=== PATIENT | female | born 1955 | race Caucasian/White ===

== ENCOUNTER 2024-02-12 10:44 | Emergency (ER) | payer MEDICARE, OTHER ==
[2024-02-12 11:39] LABS: BASOPHILS % (AUTO) 0.7 %; EOSINOPHILS # (AUTO) 0.2 10^3/uL (0.0-0.7); EOSINOPHILS % (AUTO) 3.4 %; HCT - HEMATOCRIT 45.3 % (37.0-47.0); HGB - HEMOGLOBIN 14.7 g/dL (12.0-16.0); LYMPHOCYTES # (AUTO) 1.6 10^3/uL (1.5-3.5); LYMPHOCYTES % (AUTO) 27.7 %; MEAN CORPUSCULAR HEMOGLOBIN 30.5 pg (27.0-31.0); MEAN CORPUSCULAR HGB CONC 32.5 g/dL (32.0-36.0); MEAN PLATELET VOLUME 9.3 fL (7.9-10.8); MONOCYTES # (AUTO) 0.5 10^3/uL (0.0-1.0); MONOCYTES % (AUTO) 9.2 %; NEUTROPHILS # (AUTO) 3.3 10^3/uL (1.5-6.6); NEUTROPHILS % (AUTO) 58.6 %; PLT - PLATELET COUNT 301 10^3/uL (130-450); RED BLOOD COUNT 4.82 10^6/uL (4.20-5.40); RED CELL DISTRIBUTION WIDTH 12.3 % (12.0-15.0); WHITE BLOOD COUNT 5.6 x10^3/uL (4.8-10.8)
--- NOTE | 2024-02-12 11:55 | ED Physician Documentation ---
History of Present Illness - Stated complaint Stated Complaint: DIZZINESS,BLURRED VISION - Chief complaint Chief Complaint: Neuro - History obtained from History obtained from: Patient, Family () - History of Present Illness Timing: Today - Additonal information Additional information: 68-year-old Pascale Horton is visiting [place] from [place]. She usually stays here 10 days out of the year. She is drinking more alcohol than normal. This morning she got into the shower and while she was showering she developed acute significant dizziness and lightheadedness she developed some double vision as well. She has had a second episode while she was making the bed this morning. She had a third episode while she was walking. She has had a prior episode of dehydration causing syncope. She does not take a diuretic she is not a diabetic she has not had vomiting or diarrhea. She is uncertain how much fluid she is consumed in the past 2 days. She does have a history of consumption of supplements including berberine which has known diuretic properties. Review of Systems Constitutional: denies: Fever Eyes: denies: Decreased vision Ears: denies: Ear pain Nose: denies: Rhinorrhea / runny nose, Congestion Throat: denies: Sore throat Cardiac: denies: Chest pain / pressure, Palpitations Respiratory: denies: Dyspnea, Cough GI: denies: Abdominal Pain, Nausea, Vomiting, Constipation, Diarrhea : denies: Dysuria, Frequency Skin: denies: Rash Musculoskeletal: denies: Neck pain, Back pain, Extremity pain Neurologic: denies: Generalized weakness, Focal weakness, Numbness PD PAST MEDICAL HISTORY - Past Medical History Past Medical History: Yes Cardiovascular: None Respiratory: None Neuro: Migraines Endocrine/Autoimmune: None GI: GERD 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 : None HEENT: None Psych: Anxiety, Claustrophobia Musculoskeletal: Osteoarthritis, Chronic back pain Derm: None - Past Surgical History Past Surgical History: Yes /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: Hysterectomy - Present Medications Home Medications: Ambulatory Orders Medication Instructions Recorded Confirmed Diclofenac Sodium 75 mg PO DAILY 02/12/24 02/12/24 Pantoprazole [Protonix] 40 mg PO DAILY 02/12/24 02/12/24 - Allergies Allergies/Adverse Reactions: Allergies Allergy/AdvReac Type Severity Reaction Status Date / Time Sulfa (Sulfonamide Allergy Unknown Verified 02/12/24 10:49 Antibiotics) - Social History Does the pt smoke?: No Smoking Status: Never smoker Does the pt drink ETOH?: Yes ETOH Use: Wine Does the pt have substance abuse?: No - Immunizations Immunizations are current?: Yes - POLST Patient has POLST: No PD ED PE NORMAL - Vitals Vital signs reviewed: Yes (Hypertensive) - General General: Alert and oriented X 3, No acute distress, Well developed/nourished - HEENT HEENT: Atraumatic, PERRL, EOMI - Neck Neck: Supple, no meningeal sign, No bony TTP - Cardiac Cardiac: RRR, No murmur - Respiratory Respiratory: No respiratory distress, Clear bilaterally - Abdomen Abdomen: Soft, Non tender - Back Back: No CVA TTP, No spinal TTP - Derm Derm: Normal color, Warm and dry, No rash - Extremities Extremities: No deformity, No edema - Neuro Neuro: Alert and oriented X 3, inspector timers 2-12 intact, No motor deficit, No sensory deficit, Normal speech Eye Opening: Spontaneous Motor: Obeys Commands Verbal: Oriented GCS Score: 15 - Psych Psych: Normal mood, Normal affect Results - Vitals Vitals: Vital Signs - 24 hr 02/12/24 02/12/24 02/12/24 10:50 13:03 13:33 Temperature 36.3 C L Heart Rate 73 60 64 Respiratory 16 14 18 Rate Blood Pressure 179/81 H 163/74 H 163/74 H O2 Saturation 99 100 99 Oxygen O2 Source Room air - EKG (time done) 1121 EKG releavant findings:: EKG personally interpreted by author of this note. Relevant findings are: Rate: Rate (enter#) (61) Rhythm: LAE QRS: LVH Compare to prior EKG: Old EKG unavailable Computer interpretation: Agree with computer - Labs Labs: Laboratory Tests 02/12/24 02/12/24 02/12/24 11:02 11:30 11:30 WBC 5.6 RBC 4.82 Hgb 14.7 Hct 45.3 MCV 94.0 MCH 30.5 MCHC 32.5 RDW 12.3 Plt Count 301 MPV 9.3 Neut # (Auto) 3.3 Lymph # (Auto) 1.6 [place] # (Auto) 0.5 Eos # (Auto) 0.2 Baso # (Auto) 0.0 Absolute Nucleated RBC 0.00 Nucleated RBC % 0.0 Sodium 141 Potassium 3.6 Chloride 106 Carbon Dioxide 29 Anion Gap 6.0 BUN 13 Creatinine 0.6 Estimated GFR (MDRD) 99 Glucose 73 L POC Whole Bld Glucose 106 H Calcium 9.4 Total Bilirubin 0.8 AST 19 ALT 15 Alkaline Phosphatase 92 Troponin I High Sens 2.4 Total Protein 7.3 Albumin 4.4 Globulin 2.9 Albumin/Globulin Ratio 1.5 Lipase 28 Procedures - IVC sono (time) 1150 Bedside IVC sono: IVC measures (cm) (0.6), IVC collapsed c insp (cm) (complete), Profound dehydration (est 3+ liter deficit) PD Medical Decision Making - ED course Complexity details: reviewed results, re-evaluated patient, considered differential, d/w patient, d/w family Reviewed Lab Results: We reviewed complete blood count showing a normal white blood cell count normal hemoglobin hematocrit and platelets normal indices chemistry showed normal electrolytes normal kidney and liver function and normal high-sensitivity troponin. I interpreted these benign-appearing laboratories to indicate a benign process. They do not contribute to any specific diagnosis. ED course: Pascale Horton presented to the emergency department with acute dizziness and near syncope and multiple episodes this morning and she was found to be significantly dehydrated on interrogation of the IVC with POCUS. She does not have a history of diabetes she did consume some alcohol and she uses a supplement called berberine which has known diuretic effects. I suspect these are the reasons she ended up being dehydrated. She was treated in the emergency department with saline improved and was discharged. Departure - Departure Disposition: 01 Home, Self Care Clinical Impression: Dehydration, Near syncope Condition: Stable Instructions: ED Dehydration Follow-Up: Your, doctor [Other] Comments: Pascale, today it looks like dehydration was the cause of the symptoms you experienced. We have provided some intravenous hydration and via our estimations this is inadequate to make you fully hydrated. My recommendation is to drink an additional 2 quarts of fluid today. In the future if you are consuming alcohol my recommendation is to drink additional fluids prior to going to bed. We did not find anything else wrong. Your blood counts, electrolytes, kidney and liver function all normal. A sensitive marker of damage to the heart was also negative. Expect resolution of your symptoms today. Forms: PCP List Discharge Date/Time: 02/12/24 13:33
[2024-02-12 11:58] LABS: ALBUMIN 4.4 g/dL (3.2-5.5); ALBUMIN/GLOBULIN RATIO 1.5 (1.0-2.2); BILIRUBIN,TOTAL 0.8 mg/dL (0.2-1.0); CALCIUM 9.4 mg/dL (8.5-10.3); CREATININE 0.6 mg/dL (0.6-1.3); POTASSIUM 3.6 mmol/L (3.5-4.5); TOTAL PROTEIN 7.3 g/dL (6.4-8.9)
[2024-02-12] MEDS: SODIUM CHLORIDE 0.9% 1,000 ML IV STA (11:58)
[2024-02-12 11:59] LABS: TROPONIN I HIGH SENSITIVITY 2.4 ng/L (2.3-14.8)
[2024-02-12 13:06] VITALS: BP 163/74
[2024-02-12 13:39] VITALS: O2SAT 99
== END 2024-02-12 13:33 | disposition home or self-care (01) ==
LOC: ED 10:44
DX: E86.0 Dehydration (principal); R55 Syncope and collapse
CPT/HCPCS: 36415; 80053; 83690; 84484; 85025; 93005; 96360; 99284